=== PATIENT | female | born 1930 | race Caucasian/White ===

== ENCOUNTER → 2018-03-16 | Outpatient (CLI) | payer MEDICARE, OTHER ==
[~2018-03-16] MED LIST: ADULT LOW DOSE81 MG PO; AMBIEN 5 MG TABL5 M1; ANUCORT-HC25 MG RECTAL; AVALIDE 150-121 EACH PO; AVALIDE 300-251 EACH PO; AVAPRO 150 MG150 M1 PO; AVAPRO300 MG PO; BENEFIBER PO; BENTYL 10 MG CA10 M1 PO; BIOTIN PO; BIOTIN5 M1; CALCIUM 600 +1 EAC1; DOXEPIN 10 MG C10 MG PO; FISH OIL 1,0001 EAC5 PO; FISHOIL; FOSAMAX 70 MG T70 MG PO; HYDROCHLOROTHIA25 M1 PO; HYDROCHLOROTHIA25 M2 PO; HYDROCODON-ACE1 EAC7 PO; HYDROCODONE-AP1 EAC6 PO; IBUPROFEN 800800 M1 PO; LIPITOR 20 MG T20 M1 PO; LORTAB 5 MG/5001 TA1 PO; LYSINE; MULTIVITAMINS PO; NEURONTIN 300300 M1 PO; NIACIN 500 MG500 M1; NITROFURANTOIN100 MG PO; NORCO 5-325 TA1 EACH PO; ODORLESS GARLI500 MG PO; OXYCODONE HCL5 M1 PO; PROLOPRIM100 MG PO; QUESTRAN LIGHT P4 GM PO; REQUIP 0.25 M0.25 M1 PO; REQUIP0.5 MG PO; ROBAXIN 750 MG750 M1 PO; TOPROL XL25 MG PO; VITAMIN D31000 UNI2 PO; XARELTO10 M1 PO; ZOVIRAX 5% OINT15 G1
== END ==
LOC: M.RAD 13:11
DX: Z12.31 Encounter for screening mammogram for malignant neoplasm of breast (principal)

== ENCOUNTER 2018-06-10 11:44 | Emergency (ER) | payer MEDICARE, OTHER ==
[~2018-06-10] VITALS: Ht 157.5 cm; Wt 61.2 kg
[2018-06-10] MEDS ORDERED: UNICOMPLEX M TA1 TA1 PO (12:02)
[2018-06-10] MEDS ORDERED: LASIX 20 MG TAB20 MG PO (12:02)
[2018-06-10] MEDS ORDERED: HYDROCODONE-AP1 EAC6 PO (12:42)
[2018-06-10 13:04] VITALS: BP 147/90
== END 2018-06-10 13:06 | disposition home or self-care (01) ==
LOC: M.ERS 11:44
DX: M72.2 Plantar fascial fibromatosis (principal); I10 Essential (primary) hypertension; Z88.2 Allergy status to sulfonamides; Z88.8 Allergy status to other drugs, medicaments and biological substances; Z90.710 Acquired absence of both cervix and uterus

== ENCOUNTER → 2020-03-05 | Outpatient (CLI) | payer MEDICARE, OTHER ==
[~2020-03-05] MED LIST changes: +LASIX 20 MG TAB20 MG PO; +UNICOMPLEX M TA1 TA1 PO
== END ==
LOC: M.RAD 09:48
PROVIDERS: ATTEND Nurse Practitioner Family
DX: Z12.31 Encounter for screening mammogram for malignant neoplasm of breast (principal); N64.89 Other specified disorders of breast; N60.82 Other benign mammary dysplasias of left breast; N60.81 Other benign mammary dysplasias of right breast

== ENCOUNTER → 2020-06-26 | Outpatient (CLI) | payer MEDICARE, OTHER | LOC: M.MRI 06-11 15:43 | PROVIDERS: ATTEND Nurse Practitioner Family | DX: M50.223 Other cervical disc displacement at C6-C7 level (principal); M51.34 Other intervertebral disc degeneration, thoracic region; M48.02 Spinal stenosis, cervical region; M25.78 Osteophyte, vertebrae ==